=== PATIENT | male | born 1955 | race Caucasian/White ===

== ENCOUNTER 2021-12-28 13:54 | Inpatient (IN) | payer MEDICARE, OTHER ==
[2021-12-28 15:05] LABS: #Basophils 0.1 10x3/uL (0.0-0.2); #Eosinphils 0.3 10x3/uL (0.0-0.5); #Monocytes 0.5 10x3/uL (0.0-1.1); #Neutrophils 5.4 10x3/uL (1.5-8.4); %Eosinophils 3.7 % (0.0-6.0); %Lymphocytes 10.6 % (18.0-47.0); %Monocytes 6.3 % (0.0-10.0); %Neutrophils 74.7 % (40.0-75.0); Hemoglobin 13.4 g/dL (13.5-17.5); Mean Corpuscular HGB CONC 33.6 g/dL (32.0-36.0); Mean Corpuscular Hemoglobin 33.7 pg (27.0-33.0); Mean Corpuscular Volume 100.3 fl (81.2-95.1); Mean Platelet Volume 9.1 fl (7.4-10.4); Platelet Count 276 10x3/uL (150-450); RBC Distribution Width 13.5 % (11.5-14.5); Red Blood Cell (RBC) Count 3.98 10x6/uL (4.32-5.72); White Blood Cell (WBC) Count 7.3 10x3/uL (3.5-10.5)
[2021-12-28 15:09] LABS: Anion Gap 23 mmol/L (10-20); BUN (Urea Nitrogen) 18 mg/dL (8.4-25.7); Calc. Creatinine Clearance 0 mL/min (70-130); Carbon Dioxide 16 mmol/L (23-31); Chloride 105 mmol/L (98-107); Potassium 3.5 mmol/L (3.5-5.1); Sodium 140 mmol/L (136-145)
[2021-12-28 15:10] LABS: ALT (SGPT) 39 U/L (8-55); AST (SGOT) 46 U/L (5-34); Alcohol 186 mg/dL (Less than 10); Alkaline Phosphatase 61 U/L (40-110); Bilirubin, Total 0.6 mg/dL (0.2-1.2); CK (CPK) 74 U/L (30-200); Calcium 8.7 mg/dL (7.8-10.44); Glucose 115 mg/dL (80-115); Lipase 52 U/L (8-78); Salicylate Less than 8.0 mg/dL (15.0-30.0)
[2021-12-28] MEDS ORDERED: Boostrix 0.5 ML (Tdap) VIAL ONE (15:18)
[2021-12-28] MEDS ORDERED: Cefepime 2 GM VIAL ONE (15:43)
[2021-12-28] MEDS ORDERED: VANCOMYCIN 2 GRAM/400 ML BAG 2 GM in Premix Bag 1 BAG IVPB SCH (16:00)
[2021-12-28 16:45] LABS: Bilirubin Neg (Negative); Blood, Urine Negative (Negative); Clarity Clear (Clear); Glucose, Urine (Dipstick) Normal (Negative); Ketone, Urine 5 mg/dL (Negative); Leukocyte Negative (Negative); Nitrite Negative (Negative); Protein, Urine (Dipstick) 30 mg/dl (Neg-Trace)
[2021-12-28 16:53] LABS: RBC/HPF 0-3 HPF (0-3); WBC/HPF 0-3 HPF (0-3)
[2021-12-28 16:54] LABS: Amphetamine Not Detected (NotDetected); Bacteria/HPF 1+ HPF (None Seen); Barbiturates Screen Not Detected (NotDetected); Benzodiazepine Screen Detected (NotDetected); Cocaine Metabolite Screen Not Detected (NotDetected); Methadone Not Detected (NotDetected); Methamphetamine Detected (NotDetected); Opiate Screen Not Detected (NotDetected); Oxycodone Screen Not Detected (NotDetected); Phencyclidine (PCP) Not Detected (NotDetected); Squamous Epithelial None Seen HPF (0-3); THC/Cannabinoid Screen Not Detected (NotDetected); Tricyclic Screen Detected (NotDetected)
[2021-12-28 17:16] LABS: SARS-CoV-2 NAA Rapid Test Not Detected (NotDetected)
[2021-12-28 17:20] LABS: Free T4 (Free Thyroxine) 0.63 ng/dL (0.70-1.48)
[2021-12-28] MEDS ORDERED: Multivitamins, Adult 10 ML, Folic Acid 1 MG in Dextrose 5 %-0.45 % NaCl 1,000 ML IV SCH (17:30)
[2021-12-28] MEDS ORDERED: Thiamine HCl 200 MG/2 ML VIAL SLOW IVP SCH (17:45)
[2021-12-28 18:04] LABS: Lactic Acid 3.4 mmol/L (0.5-2.2)
[2021-12-28] MEDS ORDERED: Acetaminophen 325 MG TAB PO PRN (18:11)
[2021-12-28] MEDS ORDERED: Lorazepam 1 MG TAB PO PRN (18:17)
[2021-12-28] MEDS ORDERED: Lorazepam 2 MG/ML VIAL IM PRN (18:17)
[2021-12-28] MEDS ORDERED: Ondansetron ODT 4 MG TAB PO PRN (18:17)
[2021-12-28 18:27] VITALS: BMI 31.1
[2021-12-28] MEDS ORDERED: Electrolyte Replacement Protocol 1 EACH FS SCH (18:30)
[2021-12-28] MEDS ORDERED: Potassium Chloride 20 MEQ TAB PO SCH (18:30)
[2021-12-28] MEDS: Famotidine 20 MG TAB PO SCH (20:03)
[2021-12-28] MEDS: Heparin 5,000 UNITS/ML VIAL SC SCH (20:04)
[2021-12-28] MEDS: Lorazepam 1 MG TAB PO SCH (20:04)
[2021-12-29] MEDS: Lorazepam 1 MG TAB PO SCH ×2 (00:35→05:36)
[2021-12-29 04:13] LABS: Phosphorus 2.2 mg/dL (2.3-4.7)
[2021-12-29 04:23] LABS: ALT (SGPT) 31 U/L (8-55); AST (SGOT) 36 U/L (5-34); Albumin 3.3 g/dL (3.4-4.8); Alkaline Phosphatase 55 U/L (40-110); Anion Gap 16 mmol/L (10-20); BUN (Urea Nitrogen) 11 mg/dL (8.4-25.7); Bilirubin, Total 0.6 mg/dL (0.2-1.2); Calc. Creatinine Clearance 117 mL/min (70-130); Calcium 7.7 mg/dL (7.8-10.44); Carbon Dioxide 17 mmol/L (23-31); Chloride 107 mmol/L (98-107); Globulin 1.9 g/dL (2.4-3.5); Glucose 101 mg/dL (80-115); Magnesium 1.2 mg/dL (1.6-2.6); Protein, Total 5.2 g/dL (5.8-8.1); Sodium 136 mmol/L (136-145)
[2021-12-29 04:51] LABS: #Eosinphils 0.3 10x3/uL (0.0-0.5); #Monocytes 0.4 10x3/uL (0.0-1.1); #Neutrophils 5.2 10x3/uL (1.5-8.4); %Basophils 0.6 % (0.0-2.0); %Eosinophils 4.3 % (0.0-6.0); %Lymphocytes 8.2 % (18.0-47.0); %Monocytes 5.7 % (0.0-10.0); Hemoglobin 11.9 g/dL (13.5-17.5); Mean Corpuscular Hemoglobin 33.4 pg (27.0-33.0); Mean Corpuscular Volume 101.4 fl (81.2-95.1); Mean Platelet Volume 9.2 fl (7.4-10.4); Platelet Count 225 10x3/uL (150-450); RBC Distribution Width 13.6 % (11.5-14.5); Red Blood Cell (RBC) Count 3.56 10x6/uL (4.32-5.72); White Blood Cell (WBC) Count 6.7 10x3/uL (3.5-10.5)
[2021-12-29] MEDS ORDERED: Magnesium Sulfate 4 GM in Sodium Chloride 0.9% 250 ML 250 ML IVPB SCH (05:00)
[2021-12-29] MEDS: Sodium Chloride 0.9% 1,000 ML IV SCH ×2 (05:21)
[2021-12-29] MEDS ORDERED: Levothyroxine 150 MCG TAB PO SCH (06:00)
[2021-12-29] MEDS ORDERED: PHOS-NAK 1 PKT PACK PO SCH (07:30)
[2021-12-29] MEDS: Heparin 5,000 UNITS/ML VIAL SC SCH (08:41)
[2021-12-29] MEDS: Famotidine 20 MG TAB PO SCH (08:41)
[2021-12-29] MEDS ORDERED: Multivit, Therapeutic 1 TAB PO SCH (09:00)
[2021-12-29] MEDS ORDERED: Multivitamin W/ Minerals 1 TAB PO SCH (09:00)
[2021-12-29] MEDS ORDERED: Folic Acid 1 MG TAB PO SCH (09:00)
[2021-12-29] MEDS ORDERED: Thiamine 100 MG TAB PO SCH (09:00)
[2021-12-29] MEDS ORDERED: Atorvastatin Calcium 10 MG TAB PO SCH ×2 (09:00→21:00)
[2021-12-29] MEDS ORDERED: Cyanocobalamin (Vitamin B-12) 1,000 MCG TAB PO SCH (09:00)
[2021-12-29 12:30] VITALS: BP 132/82; TEMP 97.3
[2021-12-29] MEDS ORDERED: Lorazepam 1 MG TAB PO PRN (18:17)
[2021-12-29] MEDS ORDERED: DULoxetine 30 MG CAP PO SCH (21:00)
[2021-12-29] MEDS ORDERED: Aspirin 81 mg Enteric Coated Tablet PO SCH (21:00)
[2021-12-29] MEDS ORDERED: Amitriptyline HCl 25 MG TAB PO SCH (21:00)
[2021-12-30] MEDS ORDERED: Lorazepam 1 MG TAB PO PRN (18:17)
[2021-12-30] MEDS ORDERED: Lorazepam 0.5 MG TAB PO SCH (18:30)
[2021-12-31] MEDS ORDERED: Lorazepam 0.5 MG TAB PO PRN (18:17)
== END 2021-12-29 13:10 | disposition home or self-care (01) | DRG 918 ==
LOC: CSHERS 13:54 → CSHTELE 17:08
PROVIDERS: ADMIT Internal Medicine; ATTEND Internal Medicine
PROC: HZ2ZZZZ Detoxification Services for Substance Abuse Treatment (ICD-10-PCS; principal; 2021-12-28)
DX: T51.91XA Toxic effect of unspecified alcohol, accidental (unintentional), initial encounter (principal); E87.2 Acidosis; N17.9 Acute kidney failure, unspecified; T43.011A Poisoning by tricyclic antidepressants, accidental (unintentional), initial encounter; T43.621A Poisoning by amphetamines, accidental (unintentional), initial encounter; T42.4X1A Poisoning by benzodiazepines, accidental (unintentional), initial encounter; F19.10 Other psychoactive substance abuse, uncomplicated; E05.00 Thyrotoxicosis with diffuse goiter without thyrotoxic crisis or storm; E03.9 Hypothyroidism, unspecified; F32.A Depression, unspecified; E78.2 Mixed hyperlipidemia; F10.10 Alcohol abuse, uncomplicated; R00.0 Tachycardia, unspecified; Y90.6 Blood alcohol level of 120-199 mg/100 ml; Z20.822 Contact with and (suspected) exposure to COVID-19; Z79.82 Long term (current) use of aspirin; Z79.899 Other long term (current) drug therapy; Z85.828 Personal history of other malignant neoplasm of skin; Z87.891 Personal history of nicotine dependence; Z90.49 Acquired absence of other specified parts of digestive tract; Z98.890 Other specified postprocedural states; Z71.51 Drug abuse counseling and surveillance of drug abuser
CPT/HCPCS: 0240U; 36415; 70450; 71045; 71275; 80053; 80306; 80307; 81003; 81015; 82550; 83605; 83690; 83735; 84100; 84439; 84443; 84481; 84484; 85025; 87040; 87086; 90715; 93005; 93010; 93306; J0692; J1644; J3370; J3411; J3475; J7042; J7050

== ENCOUNTER 2022-04-08 11:06 | Outpatient (CLI) | payer OTHER | END 2022-04-08 11:07 | disposition home or self-care (01) | LOC: CSHRAD 11:06 | PROVIDERS: ATTEND Specialist | DX: E04.9 Nontoxic goiter, unspecified (principal); R22.1 Localized swelling, mass and lump, neck | CPT/HCPCS: 70360 ==

== ENCOUNTER 2022-04-16 12:55 | Outpatient (CLI) | payer OTHER | END 2022-04-16 12:56 | disposition home or self-care (01) | LOC: CSHULT 12:55 | PROVIDERS: ATTEND Specialist | DX: E04.9 Nontoxic goiter, unspecified (principal); R22.1 Localized swelling, mass and lump, neck | CPT/HCPCS: 76536 ==

== ENCOUNTER 2022-05-07 08:05 | Outpatient (CLI) | payer OTHER ==
[~2022-05-07 08:05] MED LIST: Iopamidol 300 61% 100 ML VIAL FS ONE
== END 2022-05-07 08:06 | disposition home or self-care (01) ==
LOC: CSHCT 08:05
PROVIDERS: ATTEND Otolaryngology Otolaryngic Allergy
DX: R22.1 Localized swelling, mass and lump, neck (principal)
CPT/HCPCS: 70491; 82565; Q9967